=== PATIENT | female | born 2000 | race Caucasian/White ===

== ENCOUNTER 2020-12-04 05:06 | Emergency (ER) | payer SELFPAY ==
--- NOTE | 2020-12-04 07:21 | Emergency Department Report ---
HPI - General Chief Complaint: Abdominal Pain Time Seen by Provider: 12/04/20 07:02 - HPI HPI: 20-year-old female presents to the emergency department with a complaint of a 2- day history of sore throat, subjective fever, body aches, dry cough, and the pat ient then developed upper abdominal pain last night at around 11 PM. She denies any dysuria, vaginal bleeding or discharge, back pain, pelvic pain, but does admit to some nausea with an episode of vomiting. She tried some [id number] cough/cold medication yesterday without much relief. No recent travel or sick contacts at home. The patient is not vaccinated against COVID- 19. The patient does not speak Mexican. The [employer] line with a certified detective bureau chief was used for the H&P. ED Past Medical Hx - Past Medical History Previous Medical History?: No - Surgical History Past Surgical History?: No - Social History Smoking Status: Never Smoker Substance Use Type: None - Medications Home Medications: Home Medications Medication Instructions Recorded Confirmed Last Taken Type Doxylamine Succinate/Vit B6 1 each PO HS PRN #6 tablet. 03/31/18 Unknown Rx [Diclegis Dr 10-10 mg Tablet] Nitrofurantoin Monohyd/M-Cryst 100 mg PO BID #14 capsule 03/31/18 Unknown Rx [Macrobid 100 mg Capsule] Ibuprofen [Motrin 800 MG tab] 800 mg PO Q8HR PRN #20 tablet 12/04/20 Unknown Rx Ondansetron [Zofran Odt] 4 mg PO Q8HR PRN #15 tab.rapdis 12/04/20 Unknown Rx ED Review of Systems ROS: Stated complaint: SORE THROAT BODY ACHE FEVER Other details as noted in HPI Comment: All other systems reviewed and negative Constitutional: fever (Subjective). denies: chills Eyes: denies: eye pain, vision change ENT: throat pain. denies: ear pain Respiratory: cough. denies: shortness of breath Cardiovascular: denies: chest pain, palpitations Gastrointestinal: abdominal pain, nausea, vomiting Genitourinary: denies: dysuria, discharge Musculoskeletal: denies: joint swelling, arthralgia Skin: denies: rash, lesions Neurological: denies: headache, weakness Physical Exam - Physical Exam Vital Signs: Vital Signs 12/04/20 05:33 Temperature 98.1 F Pulse Rate 100 H Respiratory 16 Rate Blood Pressure 122/66 O2 Sat by Pulse 91 Oximetry Physical Exam: GENERAL: The patient is well-developed well-nourished. HENT: Normocephalic. Atraumatic. Patient has moist mucous membranes. Oropharynx is clear without tonsillar hypertrophy, erythema or exudates. No drooling or trismus. EYES: Extraocular motions are intact. NECK: Supple. Trachea is midline. CHEST/LUNGS: Clear to auscultation. No cough heard during examination. There is no respiratory distress noted. HEART/CARDIOVASCULAR: Regular. There is no tachycardia. There is no murmur. ABDOMEN: Abdomen is soft. Upper abdominal pain to palpation. No guarding. Patient has normal bowel sounds. Obese habitus. SKIN: Skin is warm and dry. NEURO: The patient is awake, alert, and oriented. The patient is cooperative. The patient has no focal neurologic deficits. Normal speech. MUSCULOSKELETAL: There is no tenderness or deformity. There is no limitation range of motion. BACK: No CVA tenderness to palpation. ED Course Vital Signs 12/04/20 05:33 Temperature 98.1 F Pulse Rate 100 H Respiratory 16 Rate Blood Pressure 122/66 O2 Sat by Pulse 91 Oximetry ED Medical Decision Making - Lab Data Result diagrams: 12/04/20 07:29 12/04/20 07:29 Lab Results 12/04/20 12/04/20 12/04/20 Range/Units 07:29 07:29 07:29 WBC 5.5 (4.5-11.0) K/mm3 RBC 4.80 (3.65-5.03) M/mm3 Hgb 13.9 (10.1-14.3) gm/dl Hct 41.3 (30.3-42.9) % MCV 86 (79-97) fl MCH 29 (28-32) pg MCHC 34 (30-34) % RDW 15.7 H (13.2-15.2) % Plt Count 190 (140-440) K/mm3 Lymph % (Auto) 17.0 (13.4-35.0) % Davie % (Auto) 6.3 (0.0-7.3) % Eos % (Auto) 0.0 (0.0-4.3) % Baso % (Auto) 0.2 (0.0-1.8) % Lymph # (Auto) 0.9 L (1.2-5.4) K/mm3 Davie # (Auto) 0.3 (0.0-0.8) K/mm3 Eos # (Auto) 0.0 (0.0-0.4) K/mm3 Baso # (Auto) 0.0 (0.0-0.1) K/mm3 Seg Neutrophils % 76.5 H (40.0-70.0) % Seg Neutrophils # 4.2 (1.8-7.7) K/mm3 Sodium 140 (137-145) mmol/L Potassium 3.4 L (3.6-5.0) mmol/L Chloride 100.9 (98-107) mmol/L Carbon Dioxide 26 (22-30) mmol/L Anion Gap 17 mmol/L BUN 7 (7-17) mg/dL Creatinine 0.6 (0.6-1.2) mg/dL Estimated GFR > 60 ml/min BUN/Creatinine Ratio 12 % Glucose 137 H (65-100) mg/dL Calcium 8.1 L (8.4-10.2) mg/dL Total Bilirubin 0.20 (0.1-1.2) mg/dL AST 47 H (5-40) units/L ALT 49 (7-56) units/L Alkaline Phosphatase 125 (35-129) units/L Total Protein 7.7 (6.3-8.2) g/dL Albumin 4.0 (3.9-5) g/dL Albumin/Globulin Ratio 1.1 % Lipase 13 (13-60) units/L HCG, Qual Negative (Negative) Influenza A (Rapid) (Negative) Influenza B (Rapid) (Negative) Group A Strep Rapid (Negative) 12/04/20 Range/Units Unknown WBC (4.5-11.0) K/mm3 RBC (3.65-5.03) M/mm3 Hgb (10.1-14.3) gm/dl Hct (30.3-42.9) % MCV (79-97) fl MCH (28-32) pg MCHC (30-34) % RDW (13.2-15.2) % Plt Count (140-440) K/mm3 Lymph % (Auto) (13.4-35.0) % Davie % (Auto) (0.0-7.3) % Eos % (Auto) (0.0-4.3) % Baso % (Auto) (0.0-1.8) % Lymph # (Auto) (1.2-5.4) K/mm3 Davie # (Auto) (0.0-0.8) K/mm3 Eos # (Auto) (0.0-0.4) K/mm3 Baso # (Auto) (0.0-0.1) K/mm3 Seg Neutrophils % (40.0-70.0) % Seg Neutrophils # (1.8-7.7) K/mm3 Sodium (137-145) mmol/L Potassium (3.6-5.0) mmol/L Chloride (98-107) mmol/L Carbon Dioxide (22-30) mmol/L Anion Gap mmol/L BUN (7-17) mg/dL Creatinine (0.6-1.2) mg/dL Estimated GFR ml/min BUN/Creatinine Ratio % Glucose (65-100) mg/dL Calcium (8.4-10.2) mg/dL Total Bilirubin (0.1-1.2) mg/dL AST (5-40) units/L ALT (7-56) units/L Alkaline Phosphatase (35-129) units/L Total Protein (6.3-8.2) g/dL Albumin (3.9-5) g/dL Albumin/Globulin Ratio % Lipase (13-60) units/L HCG, Qual (Negative) Influenza A (Rapid) Negative (Negative) Influenza B (Rapid) Negative (Negative) Group A Strep Rapid Negative (Negative) - Radiology Data Radiology results: report reviewed ULTRASOUND ABDOMEN, LIMITED INDICATION / CLINICAL INFORMATION: upper abdominal pain. COMPARISON: None available. FINDINGS: PANCREAS: Visualized portion shows no significant abnormality. LIVER: The liver is echogenic and enlarged measuring 17.9 cm. The main portal vein is patent with antegrade flow. Evaluation for focal lesion is limited in the setting of steatosis. GALLBLADDER: No significant abnormality. BILE DUCTS: No significant abnormality. Common bile duct measures 3 mm. FREE FLUID: None. ADDITIONAL FINDINGS: None. IMPRESSION: 1. Hepatomegaly and steatosis. - Medical Decision Making This patient presents to the emergency department with complaint of nausea with vomiting, upper abdominal pain, subjective fever, sore throat, body aches. No focus of infection seen on physical examination. She does have some upper abdominal tenderness to palpation. However the abdomen is soft, nondistended and nontoxic in appearance. Patient was negative for strep pharyngitis. Negative for influenza. Abdominal x-ray shows nonspecific nonobstructive bowel gas and no free air. Labs have been mostly unremarkable including CBC, metabolic panel, and the patient is not . She does have a slightly elevated AST and mild hypokalemia with potassium 3.4. Abdominal ultrasound shows hepatic steatosis and hepatomegaly, but no cholelithiasis, cholecystitis, pancreatitis, or any other acute process. Patient was given a dose of pain medication with some improvement. Overall I believe the patient has a viral syndrome. I am unable to test for COVID-19 at this time, but the patient does not have any complaints of shortness of breath and does not have any hypoxia seen on vital signs. It has been recommended that the patient seek outpatient COVID-19 testing. Otherwise she has been given outpatient referrals for primary care, a prescription for NSAIDs and antiemetics. Critical Care Time: No Critical care attestation.: If time is entered above; I have spent that time in minutes in the direct care of this critically ill patient, excluding procedure time. ED Disposition Clinical Impression: Viral syndrome, Abdominal pain, Pharyngitis Disposition: 01 HOME / SELF CARE / HOMELESS Is pt being admited?: No Condition: Stable Instructions: Abdominal Pain, Adult, Viral Illness, Adult, Sore Throat, Abdominal Pain (ED) Additional Instructions: [facility] un seguimiento con un mdico de atencin primaria en los prximos foreman. Le he dado kofi referencia para un mdico de atencin primaria local, el Dr. Fuentes, y kofi clnica de atencin primaria, [facility]. Parece tener kofi enfermedad viral. Lamentablemente, en jose momento no puedo realizar la prueba de COVID-19. Le recomiendo que busque la prueba COVID-19 para pacientes ambulatorios. [place] se puede hacer en algunos consultorios de atencin primaria, en algunos centros de atencin de urgencia, y debe clarita kofi lista de los centros de pruebas a travs del [facility]artamento [facility] [place] de [place]. Regrese al departamento de emergencias con cualquier empeoramiento de blanquita sntomas, sntomas nuevos o preocupantes que no se hayan abordado alayna esta visita actual al departamento de emergencias, o con cualquier angustia aguda. Prescriptions: Ibuprofen [Motrin 800 MG tab] 800 mg PO Q8HR PRN #20 tablet PRN Reason: Pain , Severe (7-10) Ondansetron [Zofran Odt] 4 mg PO Q8HR PRN #15 tab.rapdis PRN Reason: Nausea Referrals: PRIMARY CAREMD [Primary Care Provider] - 3-5 Days SOHAN FUENTES MD [Staff Physician] - 3-5 Days [facility] [Provider Group] - 3-5 Days Time of Disposition: 11:02 Print Language: ALBANIAN
[2020-12-04 07:49] LABS: Basophils % (Auto) 0.2 % (0.0-1.8); Hematocrit 41.3 % (30.3-42.9); Hemoglobin 13.9 gm/dl (10.1-14.3); Lymphocytes # (Auto) 0.9 K/mm3 (1.2-5.4); Mean Corpuscular HGB Conc 34 % (30-34); Mean Corpuscular Volume 86 fl (79-97); Monocytes # (Auto) 0.3 K/mm3 (0.0-0.8); Monocytes % (Auto) 6.3 % (0.0-7.3); Platelet Count 190 K/mm3 (140-440); Red Cell Distribution Width 15.7 % (13.2-15.2)
[2020-12-04 08:04] LABS: Alanine Aminotransferase 49 units/L (7-56); Blood Urea Nitrogen 7 mg/dL (7-17); Calcium 8.1 mg/dL (8.4-10.2); Hemolysis Index 13
[2020-12-04 08:06] LABS: BUN/Creatinine Ratio 12
--- NOTE | 2020-12-04 09:10 | XRay Report ---
ABDOMEN 2 VIEW INDICATION / CLINICAL INFORMATION: Abd pain. COMPARISON: None available. FINDINGS: TUBES / LINES: None. BOWEL GAS PATTERN: No significant abnormality. FREE AIR / EXTRALUMINAL GAS: None seen. ADDITIONAL FINDINGS: IUD projects over the pelvis. IMPRESSION: 1. No significant abnormality. Signer Name: Jesús Garibay MD Signed: 12/04/2020 9:05 AM Workstation Name: [id number]
[2020-12-04] MEDS ORDERED: HYDROcodone/ACETAMINOPHEN 5-325 MG TAB PO ONE (09:20)
--- NOTE | 2020-12-04 10:57 | Ultrasound Report ---
ULTRASOUND ABDOMEN, LIMITED INDICATION / CLINICAL INFORMATION: upper abdominal pain. COMPARISON: None available. FINDINGS: PANCREAS: Visualized portion shows no significant abnormality. LIVER: The liver is echogenic and enlarged measuring 17.9 cm. The main portal vein is patent with ant egrade flow. Evaluation for focal lesion is limited in the setting of steatosis. GALLBLADDER: No significant abnormality. BILE DUCTS: No significant abnormality. Common bile duct measures 3 mm. FREE FLUID: None. ADDITIONAL FINDINGS: None. IMPRESSION: 1. Hepatomegaly and steatosis. Signer Name: Jesús Garibay MD Signed: 12/04/2020 10:53 AM Workstation Name: [id number]
[2020-12-04 11:12] VITALS: BP 107/58
== END 2020-12-04 11:14 | disposition home or self-care (01) ==
LOC: ED 05:06
DX: B34.9 Viral infection, unspecified (principal); J02.9 Acute pharyngitis, unspecified; R10.10 Upper abdominal pain, unspecified; R50.9 Fever, unspecified; R05.9 Cough, unspecified
CPT/HCPCS: 36415; 74019; 76705; 80053; 83690; 84703; 85025; 87116; 87400; 87430; 99284